=== PATIENT | female | born 1995 | race Caucasian/White ===

== ENCOUNTER 2017-04-09 17:58 | Outpatient (CLI) | payer OTHER ==
[2017-04-09 19:07] VITALS: BP 100/47
== END 2017-04-09 20:43 | disposition home or self-care (01) ==
LOC: WFO 17:58 → FBP 18:00 → WFO 20:43
PROVIDERS: ATTEND Obstetrics & Gynecology
DX: O99.89 Other specified diseases and conditions complicating pregnancy, childbirth and the puerperium (principal); R10.9 Unspecified abdominal pain; Z3A.23 23 weeks gestation of pregnancy
CPT/HCPCS: 82731; 99212

== ENCOUNTER 2017-09-01 01:35 | Emergency (ER) | payer OTHER ==
[2017-09-01] MEDS ORDERED: SUCRALFATE 1 GM/10 ML UDC PO STA (01:52)
[2017-09-01] MEDS ORDERED: MAG HYDROX/AL HYDROX/SIMETH 30 ML UDC PO STA (01:52)
[2017-09-01] MEDS ORDERED: FAMOTIDINE 20 MG TABLET PO STA (01:52)
--- NOTE | 2017-09-01 01:55 | ED Physician Documentation ---
History of Present Illness - Stated complaint Stated Complaint: CHEST PAIN - Chief complaint Chief Complaint: Cardiac - History obtained from History obtained from: Patient, Family - History of Present Illness Timing: How many hours ago (1) Pain level max: 10 Pain level now: 6 Improved by: nothing Worsened by: moving - Additonal information Additional information: Patient is a 22-year-old female who presents to the emergency department with chest pain tonight. This awoke her from sleep. It is worse with eating and drinking. Worse with movement. Has not taken anything for the pain. She is approximately 1 month and is breast-feeding. Denies any redness or swelling to the breast. She does not smoke. Is not on control. No history of blood clots in the patient and her family. Review of Systems Constitutional: denies: Fever, Chills Eyes: denies: Decreased vision Ears: denies: Ear pain Nose: denies: Rhinorrhea / runny nose, Congestion Throat: denies: Sore throat Cardiac: denies: Palpitations, Calf pain Respiratory: denies: Cough GI: denies: Abdominal Pain, Nausea, Vomiting, Diarrhea Skin: denies: Rash Musculoskeletal: denies: Neck pain, Back pain Neurologic: denies: Headache PD PAST MEDICAL HISTORY - Past Medical History Past Medical History: No - Past Surgical History Past Surgical History: No - Present Medications Home Medications: Ambulatory Orders Medication Instructions Recorded Confirmed Famotidine [Pepcid] 20 mg PO BID #60 tablet 09/01/17 Sucralfate [Carafate] 1 gm PO ACHS #60 tablet 09/01/17 - Allergies Allergies/Adverse Reactions: Allergies Allergy/AdvReac Type Severity Reaction Status Date / Time No Known Drug Allergies Allergy Verified 09/01/17 01:44 - Living Situation Living Situation: reports: With family Living Arrangement: reports: At home - Social History Does the pt smoke?: No Does the pt drink ETOH?: No Does the pt have substance abuse?: No PD ED PE NORMAL - Vitals Vital signs reviewed: Yes - General General: Alert and oriented X 3, No acute distress - HEENT HEENT: Moist mucous membranes - Neck Neck: Supple, no meningeal sign - Cardiac Cardiac: RRR, Strong equal pulses, Other (no chest wall tenderness) - Respiratory Respiratory: No respiratory distress, Clear bilaterally - Abdomen Abdomen: Soft, Non tender, Non distended - Derm Derm: Warm and dry - Neuro Neuro: Alert and oriented X 3 - Psych Psych: Normal mood, Normal affect Results - Vitals Vitals: Vital Signs - 24 hr 09/01/17 09/01/17 09/01/17 01:39 01:45 02:49 Temperature 36.5 C Heart Rate 66 56 L Respiratory 18 14 Rate Blood Pressure 116/75 110/63 Blood Pressure 119/64 [Right] O2 Saturation 100 100 Oxygen O2 Source Room air - EKG (time done) 0146 Rate: Rate (enter#) (62) Rhythm: NSR [place]: Normal Intervals: Normal OR (borderline short OR) QRS: Normal Ischemia: Normal ST segments PD MEDICAL DECISION MAKING - ED course Complexity details: reviewed results, re-evaluated patient, considered differential, d/w patient, d/w family ED course: Patient is a 22-year-old female who presents to the emergency department with what appears to be GERD. Symptoms resolved with Tylenol, Carafate and Maalox. No acute findings on EKG. Symptoms are not consistent with acute coronary syndrome. No evidence of pulmonary embolus, pneumothorax. No evidence of aortic dissection or aneurysm. Patient counseled regarding signs and symptoms for which I believe and urgent re-evaluation would be necessary. Patient with good understanding of and agreement to plan and is comfortable going home at this time This document was made in part using voice recognition software. While efforts are made to proofread this document, sound alike and grammatical errors may occur. Departure - Departure Disposition: 01 Home, Self Care Clinical Impression: Atypical chest pain GERD (gastroesophageal reflux disease) Qualifiers: Esophagitis presence: esophagitis presence not specified Qualified Code(s): K21.9 - Gastro-esophageal reflux disease without esophagitis Condition: Good Instructions: ED Chest Pain Atypical Unkn Cause, ED GERD Follow-Up: your,doctor within 1 week [Other] Prescriptions: Famotidine [Pepcid] 20 mg PO BID #60 tablet Sucralfate [Carafate] 1 gm PO ACHS #60 tablet Comments: Return if you worsen. Avoid spicy, fried and fatty foods. Also avoid caffeine.
[2017-09-01] MEDS ORDERED: ACETAMINOPHEN 325 MG TABLET PO STA (02:09)
[2017-09-01 02:50] VITALS: BP 110/63
== END 2017-09-01 02:50 | disposition home or self-care (01) ==
LOC: ED 01:35
DX: R07.89 Other chest pain (principal); K21.9 Gastro-esophageal reflux disease without esophagitis
CPT/HCPCS: 93005; 99283; 99284; A9270

== ENCOUNTER 2017-12-08 23:54 | Emergency (ER) | payer OTHER ==
--- NOTE | 2017-12-09 02:32 | XRAY Report ---
EXAM: LEFT TOE RADIOGRAPHY EXAM DATE: 12/09/2017 02:05 AM. CLINICAL HISTORY: Left little toe injury. COMPARISON: None. TECHNIQUE: 3 views. FINDINGS: Bones: No acute displaced fractures or suspicious bony lesion. Joints: No dislocation. Soft Tissues: No significant soft tissue swelling. IMPRESSION: No acute osseous abnormality demonstrated. [facility] Referring Provider Line: [phone] SITE ID: [id number]
--- NOTE | 2017-12-09 02:32 | XRAY Preliminary Report ---
Exam: XR TOE(S) LT IMPRESSION: No acute osseous abnormality demonstrated. [facility] SITE ID: [id number]
--- NOTE | 2017-12-09 02:36 | ED Physician Documentation ---
PD HPI LOWER EXT INJURY - Stated complaint Stated Complaint: L PINKY TOE INJURY - Chief complaint Chief Complaint: Ext Problem - History obtained from History obtained from: Patient - History of Present Illness PD HPI LOW EXT INJURY LOCATION: Left, Toe (little toe) Type of injury: Blunt / blow Where injury occurred: Home Timing - onset: How many hours ago (2) Worsened by: Other (Weight bearing.) Associated symptoms: No: Weakness, Numbness - Additional information Additional information: The patient is a 22-year-old female who stubbed her left little toe against a duffel bag about 2 hours prior to arrival. She presents now because of continued pain, exacerbated by weightbearing. She denies any other injuries. Review of Systems Constitutional: denies: Fever GI: denies: Nausea, Vomiting Musculoskeletal: reports: Extremity pain (Left little toe.), Pain with weight bearing Neurologic: denies: Focal weakness, Numbness PD PAST MEDICAL HISTORY - Past Medical History Past Medical History: Yes Endocrine/Autoimmune: None Psych: Depression - Past Surgical History Past Surgical History: No - Present Medications Home Medications: Ambulatory Orders Medication Instructions Recorded Confirmed Sertraline [Zoloft] 12/09/17 - Allergies Allergies/Adverse Reactions: Allergies Allergy/AdvReac Type Severity Reaction Status Date / Time No Known Drug Allergies Allergy Verified 12/09/17 00:03 - Social History Does the pt smoke?: No Smoking Status: Never smoker Does the pt drink ETOH?: No Does the pt have substance abuse?: No - Immunizations Immunizations are current?: Yes - POLST Patient has POLST: No PD ED PE NORMAL - Vitals Vital signs reviewed: Yes (normal) - General General: Alert and oriented X 3, Other (overweight) - HEENT HEENT: Atraumatic - Respiratory Respiratory: No respiratory distress - Derm Derm: No rash - Extremities Extremities: Other (There is no swelling or ecchymosis of the left little toe. There is tenderness to palpation of the mid to distal portion of the toe, without tenderness at the fifth metatarsal. There is no tenderness with palpation of the other toes. There is no break in the integument. Distal neurovascular is intact.) Results - Vitals Vitals: Vital Signs - 24 hr 12/09/17 12/09/17 00:01 02:42 Temperature 36.8 C 36.9 C Heart Rate 80 73 Respiratory 17 16 Rate Blood Pressure 131/70 H 99/72 O2 Saturation 96 100 Oxygen O2 Source Room air - Rads (name of study) left toes Radiology: Prelim report reviewed, EMP read contemporaneously, See rad report ( No acute osseous abnormality demonstrated.) PD MEDICAL DECISION MAKING - ED course Complexity details: reviewed results, re-evaluated patient, considered differential, d/w patient, d/w family ED course: The patient's presentation is most consistent with contusion to the left little toe. I discussed with her that x-ray would be of no significant clinical benefit, but she requested that an x-ray be performed nonetheless. This revealed no acute bony abnormality. Treatment in the emergency department included bronson taping of the left little toe to the fourth toe. I discussed with her and her the expected course of injury, symptomatic treatment, as well as potentially worrisome signs or symptoms that should prompt reevaluation. Departure - Departure Disposition: 01 Home, Self Care Clinical Impression: Contusion of toe of left foot Qualifiers: Encounter type: initial encounter Toe: lesser toe Damage to nail status: without damage Qualified Code(s): S90.122A - Contusion of left lesser toe(s) without damage to nail, initial encounter Condition: Stable Instructions: ED Contusion Lower Ext Follow-Up: JAIME Farmer [Provider Group] Comments: Keep your left foot elevated as much the time as possible. You can use Tylenol or ibuprofen if needed for discomfort. Let pain be your guide to activity level. Follow up with your primary physician or return to the emergency department if you develop any sign of infection, or otherwise worsening symptoms. Discharge Date/Time: 12/09/17 02:43
[2017-12-09 02:43] VITALS: BP 99/72
== END 2017-12-09 02:43 | disposition home or self-care (01) ==
LOC: ED 23:54
DX: S90.122A Contusion of left lesser toe(s) without damage to nail, initial encounter (principal); W22.8XXA Striking against or struck by other objects, initial encounter; Y92.009 Unspecified place in unspecified non-institutional (private) residence as the place of occurrence of the external cause
CPT/HCPCS: 73660; 99283

== ENCOUNTER 2018-01-26 19:10 | Emergency (ER) | payer OTHER ==
[2018-01-26 19:19] VITALS: BP 114/65
--- NOTE | 2018-01-26 19:44 | ED Physician Documentation ---
PD HPI HEADACHE - Stated complaint Stated Complaint: HEAD PX/INJURY - Chief complaint Chief Complaint: Heent - History obtained from History obtained from: Patient - History of Present Illness Timing - onset: Yesterday (Got hit while roller derbying, does not remember it specifically, probably fell backward on head, with helmet and mouthguard. Today has increasing throbbing headache and left eye pain. +nausea. No vomiting.) Review of Systems Constitutional: denies: Fever, Chills Nose: denies: Rhinorrhea / runny nose, Congestion Cardiac: denies: Chest pain / pressure, Palpitations Respiratory: denies: Dyspnea, Cough PD PAST MEDICAL HISTORY - Past Medical History Endocrine/Autoimmune: None Psych: Depression - Past Surgical History Past Surgical History: No - Present Medications Home Medications: Ambulatory Orders Medication Instructions Recorded Confirmed Sertraline [Zoloft] 50 mg PO DAILY 12/09/17 - Allergies Allergies/Adverse Reactions: Allergies Allergy/AdvReac Type Severity Reaction Status Date / Time No Known Drug Allergies Allergy Verified 01/26/18 19:19 - Social History Does the pt smoke?: No Smoking Status: Never smoker Does the pt drink ETOH?: No Does the pt have substance abuse?: No - Immunizations Immunizations are current?: Yes - POLST Patient has POLST: No PD ED PE NORMAL - Vitals Vital signs reviewed: Yes - General General: Alert and oriented X 3, No acute distress - HEENT HEENT: PERRL, EOMI - Neck Neck: Supple, no meningeal sign, No bony TTP - Neuro Neuro: Alert and oriented X 3, optimization consultant 2-12 intact Eye Opening: Spontaneous Motor: Obeys Commands Verbal: Oriented GCS Score: 15 - Psych Psych: Normal mood, Normal affect Results - Vitals Vitals: Vital Signs - 24 hr 01/26/18 19:15 Temperature 35.9 C L Heart Rate 56 L Respiratory 16 Rate Blood Pressure 114/65 O2 Saturation 99 Oxygen O2 Source Room air - Rads (name of study) CT Head Radiology: EMP read contemporaneously (normal) Departure - Departure Disposition: 01 Home, Self Care Clinical Impression: Concussion Qualifiers: Encounter type: initial encounter Loss of consciousness presence/duration: without LOC Qualified Code(s): S06.0X0A - Concussion without loss of consciousness, initial encounter Condition: Good Record reviewed to determine appropriate education?: Yes Instructions: ED Concussion Comments: Call your doctor to arrange a follow-up appointment, make the next available appointment. In the interim, return anytime if worse or if new symptoms develop.
--- NOTE | 2018-01-26 20:26 | CT Report ---
EXAM: CT HEAD EXAM DATE: 01/26/2018 08:02 PM. CLINICAL HISTORY: Trauma. COMPARISON: None. TECHNIQUE: Multiaxial CT images were obtained from the foramen magnum to the vertex. Reformats: Coron al. IV contrast: None. In accordance with CT protocol optimization, one or more of the following dose reduction techniques w ere utilized for this exam: automated exposure control, adjustment of mA and/or KV based on patient s ize, or use of iterative reconstructive technique. FINDINGS: Parenchyma: No intraparenchymal hemorrhage. No evidence of mass, midline shift, or CT findings of inf arction. Addison-white differentiation is distinct. Extraaxial Spaces: Normal for age. No subdural or epidural collections identified. Ventricles: Normal in size and position. Sinuses and Orbits: Imaged paranasal sinuses, orbits, and mastoids show no significant abnormality. Bones: No evidence of fracture or calvarial defect. Other: None. IMPRESSION: No acute intracranial CT abnormality. [facility] Referring Provider Line: [phone] SITE ID: [id number]
== END 2018-01-26 21:00 | disposition home or self-care (01) ==
LOC: ED 19:10
DX: S06.0X0A Concussion without loss of consciousness, initial encounter (principal); W22.8XXA Striking against or struck by other objects, initial encounter; W18.30XA Fall on same level, unspecified, initial encounter; Y93.51 Activity, roller skating (inline) and skateboarding
CPT/HCPCS: 70450; 99282; 99283

== ENCOUNTER 2018-02-10 13:45 | Emergency (ER) | payer OTHER ==
[2018-02-10] MEDS ORDERED: ACETAMINOPHEN 325 MG TABLET PO STA (14:50)
[2018-02-10] MEDS ORDERED: ONDANSETRON ODT 4 MG TABLET TL STA (14:50)
--- NOTE | 2018-02-10 14:53 | ED Physician Documentation ---
History of Present Illness - Stated complaint Stated Complaint: DIZZY - Chief complaint Chief Complaint: General - History obtained from History obtained from: Patient, Family - History of Present Illness Timing: How many weeks ago (2) Pain level max: 5 Pain level now: 5 - Additonal information Additional information: Patient is a 22-year-old female who sustained a head injury approximately 2 weeks ago while playing [employer]. Since that time, she has had intermittent headaches. Has had a negative head CT. Has not had any vomiting. Occasionally feels lightheaded and off balance. The symptoms generally resolve with rest and recur with activity. No fevers. No vomiting. No vision changes. No numbness or tingling. Review of Systems Constitutional: denies: Fever, Chills Eyes: denies: Loss of vision, Decreased vision GI: denies: Vomiting : denies: Now EGA PD PAST MEDICAL HISTORY - Past Medical History Past Medical History: Yes Endocrine/Autoimmune: None Psych: Depression - Past Surgical History Past Surgical History: No - Present Medications Home Medications: Ambulatory Orders Medication Instructions Recorded Confirmed Sertraline [Zoloft] 50 mg PO DAILY 12/09/17 Bcp 02/10/18 Ondansetron Odt [Zofran] 4 mg TL Q6H PRN #10 tablet 02/10/18 - Allergies Allergies/Adverse Reactions: Allergies Allergy/AdvReac Type Severity Reaction Status Date / Time No Known Drug Allergies Allergy Verified 02/10/18 13:54 - Living Situation Living Situation: reports: With family Living Arrangement: reports: At home - Social History Does the pt smoke?: No Smoking Status: Never smoker Does the pt drink ETOH?: No Does the pt have substance abuse?: No - Immunizations Immunizations are current?: Yes - POLST Patient has POLST: No PD ED PE NORMAL - Vitals Vital signs reviewed: Yes - General General: Alert and oriented X 3, No acute distress, Well developed/nourished - HEENT HEENT: Atraumatic, PERRL (No nystagmus.), EOMI, Moist mucous membranes, Pharynx benign - Neck Neck: Supple, no meningeal sign, No bony TTP - Cardiac Cardiac: RRR, Strong equal pulses - Respiratory Respiratory: No respiratory distress, Clear bilaterally - Abdomen Abdomen: Soft, Non tender, Non distended - Derm Derm: Warm and dry - Extremities Extremities: No edema - Neuro Neuro: Alert and oriented X 3, doll dresser 2-12 intact, No motor deficit, No sensory deficit, Normal speech, Other (Normal cerebellar test, normal gait) Eye Opening: Spontaneous Motor: Obeys Commands Verbal: Oriented GCS Score: 15 - Psych Psych: Normal mood, Normal affect Results - Vitals Vitals: Oxygen O2 Source Room air PD MEDICAL DECISION MAKING - ED course Complexity details: reviewed old records (Prior ED visit), considered differential, d/w patient, d/w family ED course: Patient is a 22-year-old female with what appears to be a postconcussive syndrome. She has a normal neurological examination here. Had a decrease in the emergency department and resolved. Ambulates with a normal steady gait. Able to walk heel to toe. No indication for repeat head CT at this time. We will continue supportive care and follow-up closely with her doctor. Patient counseled regarding signs and symptoms for which I believe and urgent re- evaluation would be necessary. Patient with good understanding of and agreement to plan and is comfortable going home at this time This document was made in part using voice recognition software. While efforts are made to proofread this document, sound alike and grammatical errors may occur. Departure - Departure Disposition: 01 Home, Self Care Clinical Impression: Post concussion syndrome Condition: Good Instructions: ED Concussion Follow-Up: MEÑO CONTRERAS [Primary Care Provider] - Within 1 week Prescriptions: Ondansetron Odt [Zofran] 4 mg TL Q6H PRN #10 tablet PRN Reason: Nausea / Vomiting Comments: Return if you worsen. Continue to use motrin and tylenol as needed for pain. Forms: Activity restrictions Discharge Date/Time: 02/10/18 15:06
[2018-02-10 15:06] VITALS: BP 103/58
== END 2018-02-10 15:06 | disposition home or self-care (01) ==
LOC: ED 13:45
DX: F07.81 Postconcussional syndrome (principal); Y93.51 Activity, roller skating (inline) and skateboarding
CPT/HCPCS: 99283; A9270; Q0162

== ENCOUNTER 2018-03-13 17:28 | Emergency (ER) | payer OTHER ==
--- NOTE | 2018-03-13 18:13 | ED Physician Documentation ---
PD HPI LOWER EXT INJURY - Stated complaint Stated Complaint: L FT PX - Chief complaint Chief Complaint: Ext Problem - History obtained from History obtained from: Patient - History of Present Illness PD HPI LOW EXT INJURY LOCATION: Left (Without specific injury she has had left foot pain for about a month. It started on the bottom of the foot, she was seen and diagnosed potentially with plantar fasciitis. Since then it is moved to the top of the foot. It is pretty much nonexistent at rest but hurts when she walks or does anything.) Review of Systems Constitutional: reports: Reviewed and negative Cardiac: reports: Reviewed and negative Respiratory: reports: Reviewed and negative PD PAST MEDICAL HISTORY - Past Medical History Past Medical History: No Endocrine/Autoimmune: None Psych: Depression - Past Surgical History Past Surgical History: No - Present Medications Home Medications: Ambulatory Orders Medication Instructions Recorded Confirmed Sertraline [Zoloft] 50 mg PO DAILY 12/09/17 Bc 03/13/18 - Allergies Allergies/Adverse Reactions: Allergies Allergy/AdvReac Type Severity Reaction Status Date / Time No Known Drug Allergies Allergy Verified 03/13/18 17:54 - Social History Does the pt smoke?: Yes Smoking Status: Current every day smoker Does the pt drink ETOH?: No Does the pt have substance abuse?: No - Immunizations Immunizations are current?: Yes - POLST Patient has POLST: No PD ED PE NORMAL - Vitals Vital signs reviewed: Yes - General General: Alert and oriented X 3, No acute distress - Extremities Extremities: Other (Left foot, focal tenderness of the proximal first metatarsal dorsally without limited range of motion of the big toe or any other bony tenderness of the foot ankle or leg.) - Neuro Neuro: Alert and oriented X 3, Normal speech Results - Vitals Vitals: Vital Signs - 24 hr 03/13/18 03/13/18 17:45 19:13 Temperature 36.2 C L 36.9 C Heart Rate 60 60 Respiratory 16 17 Rate Blood Pressure 104/69 108/76 O2 Saturation 100 100 Oxygen O2 Source Room air - Rads (name of study) 3v L foot Radiology: EMP read contemporaneously (normal) PD MEDICAL DECISION MAKING - ED course ED course: She has ongoing atraumatic pain of the top of the left foot at the level of the proximal first metatarsal. There was no injury. There is no evidence of infection. Her x-rays are negative. Conservative care and rest at least initially were advised but [place] - Sepsis Event Vital Signs: Vital Signs - 24 hr 03/13/18 03/13/18 17:45 19:13 Temperature 36.2 C L 36.9 C Heart Rate 60 60 Respiratory 16 17 Rate Blood Pressure 104/69 108/76 O2 Saturation 100 100 Oxygen O2 Source Room air Departure - Departure Disposition: Home, Self Care Clinical Impression: Left foot pain Condition: Good Record reviewed to determine appropriate education?: Yes Instructions: ED Contusion Lower Ext Comments: Ibuprofen as needed for pain, follow-up with your doctor in a week for recheck, take it easy until then with no running. Forms: Activity restrictions Discharge Date/Time: 03/13/18 19:22
--- NOTE | 2018-03-13 18:52 | XRAY Report ---
Procedure Date: 03/13/2018 Accession Number: [id number] / [id number] Procedure: XR - Foot 3 View LT CPT Code: FULL RESULT: EXAM: LEFT FOOT RADIOGRAPHY EXAM DATE: 03/13/2018 06:27 PM. CLINICAL HISTORY: Chronic left foot pain, greatest at the first and second metatarsals. No known trauma. COMPARISON: Left fifth toe 12/09/2017. TECHNIQUE: 3 views. FINDINGS: Bones: Normal. No fractures or bone lesions. Joints: Normal. No subluxations. Soft Tissues: Normal. No soft tissue swelling. IMPRESSION: Normal foot radiography. [facility]
[2018-03-13 19:14] VITALS: BP 108/76
== END 2018-03-13 19:22 | disposition home or self-care (01) ==
LOC: ED 17:28
DX: M79.672 Pain in left foot (principal); F17.200 Nicotine dependence, unspecified, uncomplicated
CPT/HCPCS: 99282; 99283

== ENCOUNTER 2018-08-21 15:33 | Emergency (ER) | payer OTHER ==
[2018-08-21] MEDS ORDERED: IBUPROFEN 800 MG TABLET PO STA (16:00)
--- NOTE | 2018-08-21 16:14 | ED Physician Documentation ---
PD HPI HEENT - Stated complaint Stated Complaint: SORT THROAT/F/N - Chief complaint Chief Complaint: General - History obtained from History obtained from: Patient - History of Present Illness Timing - onset: Last night Timing - details: Gradual onset Location: Throat Associated symptoms: Fever, Congestion, Headache Similar symptoms before: Has not had sx before - Additional information Additional information: The patient is a 23-year-old active [employer] [place] female who presents with sore throat and swollen tonsils. Her symptoms started last night but became worse today. She reports generalized myalgias and arthralgias, mild headache, and general misery. She denies cough, abdominal pain, vomiting or diarrhea, or dysuria. She denies history of similar symptoms in the past. Review of Systems Constitutional: reports: Fever (Possible low grade fever.), Myalgias Eyes: denies: Irritation Ears: denies: Ear pain Nose: reports: Congestion Throat: reports: Sore throat Cardiac: denies: Chest pain / pressure Respiratory: denies: Dyspnea, Cough GI: denies: Abdominal Pain, Nausea, Vomiting : denies: Dysuria Skin: denies: Rash Musculoskeletal: reports: Other (Generalized achiness.) Neurologic: reports: Headache (mild). denies: Focal weakness, Numbness PD PAST MEDICAL HISTORY - Past Medical History Respiratory: None Endocrine/Autoimmune: None Psych: Depression - Past Surgical History Past Surgical History: No - Present Medications Home Medications: Ambulatory Orders Medication Instructions Recorded Confirmed Sertraline [Zoloft] 50 mg PO DAILY 12/09/17 Bc 03/13/18 Penicillin V Potassium 500 mg PO Q6HR #40 tablet 08/21/18 - Allergies Allergies/Adverse Reactions: Allergies Allergy/AdvReac Type Severity Reaction Status Date / Time No Known Drug Allergies Allergy Verified 08/21/18 15:51 - Social History Does the pt smoke?: Yes Smoking Status: Current every day smoker Does the pt drink ETOH?: No Does the pt have substance abuse?: No - Immunizations Immunizations are current?: Yes - POLST Patient has POLST: No PD ED PE NORMAL - Vitals Vital signs reviewed: Yes (normal) - General General: Alert and oriented X 3, Well developed/nourished - HEENT HEENT: Atraumatic, EOMI, Ears normal, Other (Oral pharynx is erythematous, with enlarged tonsils bilaterally, without exudates.) - Neck Neck: Supple, no meningeal sign, No adenopathy - Cardiac Cardiac: RRR, No murmur - Respiratory Respiratory: No respiratory distress, Clear bilaterally - Abdomen Abdomen: Soft, Non tender - Back Back: No CVA TTP - Derm Derm: No rash - Extremities Extremities: No edema, No calf tenderness / cord - Neuro Neuro: Alert and oriented X 3, No motor deficit, Normal speech Results - Vitals Vitals: Vital Signs - 24 hr 08/21/18 08/21/18 15:52 16:51 Temperature 37.4 C Heart Rate 105 H 100 Respiratory 16 16 Rate Blood Pressure 118/63 118/64 O2 Saturation 98 98 Oxygen O2 Source Room air - Labs Labs: Laboratory Tests 08/21/18 16:00 Group A Strep Rapid POSITIVE H PD MEDICAL DECISION MAKING - ED course Complexity details: reviewed results, re-evaluated patient, considered differential, d/w patient ED course: The patient's presentation is significant for acute streptococcal pharyngitis, with a positive rapid strep screen. Her presentation does not suggest peritonsillar abscess, or pneumonia. Treatment in the emergency department included administration of ibuprofen 800 mg orally and penicillin 500 mg orally. She is being discharged with prescriptions for both. I discussed with her and her female communications lead the expected course of illness, antibiotic treatment and outpatient follow-up, as well as potentially worrisome signs or symptoms that should prompt reevaluation in the emergency department. Departure - Departure Disposition: 01 Home, Self Care Clinical Impression: Strep pharyngitis Condition: Stable Instructions: ED Strep Pharyngitis Conf Follow-Up: [facility] [Provider Group] Prescriptions: Penicillin V Potassium 500 mg PO Q6HR #40 tablet Comments: Gargle with cool liquids. Take penicillin 4 times daily as prescribed. You can use ibuprofen, up to 800 mg 3 times daily for its anti-inflammatory effect. Follow-up with your primary physician within 1 week. Call to schedule an appointment. Return to the emergency department if you develop increasing difficulty swallowing, or otherwise worsening symptom. Forms: Activity restrictions Discharge Date/Time: 08/21/18 16:35
[2018-08-21] MEDS ORDERED: PENICILLIN VK 250 MG TABLET PO STA (16:18)
[2018-08-21 16:52] VITALS: BP 118/64
== END 2018-08-21 16:35 | disposition home or self-care (01) ==
LOC: ED 15:33
DX: J02.0 Streptococcal pharyngitis (principal); F17.200 Nicotine dependence, unspecified, uncomplicated
CPT/HCPCS: 87430; 99283; A9270

== ENCOUNTER 2018-08-22 16:29 | Emergency (ER) | payer OTHER ==
[2018-08-22] MEDS ORDERED: SODIUM CHLORIDE 0.9% 1,000 ML IV ONE (16:55)
[2018-08-22] MEDS ORDERED: DEXAMETHASONE 10 MG/ML VIAL IVP STA (16:55)
[2018-08-22] MEDS ORDERED: cefTRIAXone 1 GM in SODIUM CHLORIDE 0.9% MINIBAG 100 ML IV STA (16:55)
[2018-08-22] MEDS ORDERED: KETOROLAC 60 MG/2 ML VIAL IVP STA (16:55)
--- NOTE | 2018-08-22 17:09 | ED Physician Documentation ---
PD HPI HEENT - Stated complaint Stated Complaint: SORE THROAT - Chief complaint Chief Complaint: Heent - History obtained from History obtained from: Patient, Family - History of Present Illness Timing - onset: How many days ago (3) Timing - duration: Days (3) Timing - details: Gradual onset, Still present Location: Throat Improves: Medication Worsens: Swalllowing Associated symptoms: Fever, Congestion, Unable to swallow, Swollen nodes, Headache Similar symptoms before: Diagnosis (strep) Recently seen: Emergency Dept - Additional information Additional information: 23-year-old female who was seen in the emerge department yesterday for strep pharyngitis is not been able to to drink or eat she is not been able to take her penicillin since last night. She continues to have a significant sore throat muscle aches and pains of fever and headache. Review of Systems Constitutional: reports: Fever, Chills, Myalgias, Fatigue Eyes: denies: Decreased vision Ears: denies: Ear pain Nose: reports: Rhinorrhea / runny nose, Congestion Throat: reports: Sore throat Cardiac: denies: Chest pain / pressure, Palpitations Respiratory: reports: Cough. denies: Dyspnea GI: reports: Abdominal Pain. denies: Vomiting : denies: Dysuria, Frequency Skin: denies: Rash Musculoskeletal: denies: Neck pain, Back pain, Extremity pain Neurologic: reports: Generalized weakness. denies: Focal weakness, Numbness PD PAST MEDICAL HISTORY - Past Medical History Respiratory: None Endocrine/Autoimmune: None Psych: Depression - Past Surgical History Past Surgical History: No - Present Medications Home Medications: Ambulatory Orders Medication Instructions Recorded Confirmed Bc 03/13/18 Penicillin V Potassium 500 mg PO Q6HR #40 tablet 08/21/18 Hydrocodone/Acetaminophen 1 - 2 each PO Q6H PRN #14 tablet 08/22/18 [Hydrocodon-Acetaminophen 5-325] - Allergies Allergies/Adverse Reactions: Allergies Allergy/AdvReac Type Severity Reaction Status Date / Time No Known Drug Allergies Allergy Verified 08/22/18 16:38 - Social History Does the pt smoke?: Yes Smoking Status: Current every day smoker Does the pt drink ETOH?: No Does the pt have substance abuse?: No - Immunizations Immunizations are current?: Yes - POLST Patient has POLST: No PD ED PE NORMAL - Vitals Vital signs reviewed: Yes (tachy and hypertensive) - General General: Alert and oriented X 3, Well developed/nourished, Other (does not talk ) - HEENT HEENT: Atraumatic, PERRL, EOMI, Other (there is minimal inflamation to both TM's there is 3+ swelling with crypts and exudate to both tonsils. ) - Neck Neck: Supple, no meningeal sign, No bony TTP, Other (tender submandibular adenopathy and shoddy adenopathy bilaterally ) - Cardiac Cardiac: No murmur, Other (tachy to 100) - Respiratory Respiratory: No respiratory distress, Clear bilaterally - Abdomen Abdomen: Soft, Non tender - Back Back: No CVA TTP, No spinal TTP - Derm Derm: Normal color, Warm and dry, No rash - Extremities Extremities: No deformity, No edema - Neuro Neuro: Alert and oriented X 3, welder tack 2-12 intact, No motor deficit, No sensory deficit, Normal speech Eye Opening: Spontaneous Motor: Obeys Commands Verbal: Oriented GCS Score: 15 - Psych Psych: Normal mood, Normal affect Results - Vitals Vitals: Vital Signs - 24 hr 08/22/18 08/22/18 16:35 17:48 Temperature 37 C 37.6 C H Heart Rate 123 H 106 H Respiratory 20 16 Rate Blood Pressure 137/79 H 125/49 L O2 Saturation 96 95 Oxygen O2 Source Room air PD MEDICAL DECISION MAKING - ED course Complexity details: considered differential, d/w patient, d/w family ED course: 23-year-old female with strep pharyngitis and 3+ cryptic tonsils is not able to swallow and stay hydrated. She is administered intravenous saline dexamethasone Rocephin and Toradol and she requires further rescue with intravenous Dilaudid and Zofran. Departure - Departure Disposition: 01 Home, Self Care Clinical Impression: Strep pharyngitis, Dehydration Condition: Stable Instructions: ED Dehydration, ED Strep Pharyngitis Conf Follow-Up: [facility] [Provider Group] Prescriptions: Hydrocodone/Acetaminophen [Hydrocodon-Acetaminophen 5-325] 1 - 2 each PO Q6H PRN #14 tablet PRN Reason: pain Forms: Activity restrictions
[2018-08-22] MEDS ORDERED: ONDANSETRON 4 MG/2 ML VIAL IVP STA (17:54)
[2018-08-22] MEDS ORDERED: HYDROmorphone 1 MG/ML CARPUJECT IVP STA (17:54)
[2018-08-22 18:22] VITALS: BP 110/57
== END 2018-08-22 18:26 | disposition home or self-care (01) ==
LOC: ED 16:29
DX: J02.0 Streptococcal pharyngitis (principal); E86.0 Dehydration; F17.200 Nicotine dependence, unspecified, uncomplicated
CPT/HCPCS: 96365; 96375; 99283; 99284; J1170

== ENCOUNTER 2018-11-05 01:46 | Emergency (ER) | payer OTHER ==
[2018-11-05] MEDS ORDERED: LIDOCAINE VISCOUS 2% 15 ML UDC MM STA (02:07)
[2018-11-05] MEDS ORDERED: KETOROLAC 60 MG/2 ML VIAL IM STA (02:08)
[2018-11-05] MEDS ORDERED: HYDROcodone/ACETAM 7.5 MG/325 MG 15 ML UDC PO STA ×2 (02:08→02:14)
[2018-11-05] MEDS ORDERED: ONDANSETRON ODT 4 MG TABLET TL STA (02:16)
--- NOTE | 2018-11-05 03:05 | ED Physician Documentation ---
PD HPI HEENT - Stated complaint Stated Complaint: POST OP THROAT PAIN - Chief complaint Chief Complaint: Heent - History obtained from History obtained from: Patient - History of Present Illness Timing - onset: How many hours ago (12) Timing - duration: Hours (12) Timing - details: Gradual onset Pain level max: 7 Pain level now: 7 Severity Comments: moderate Location: Throat Improves: Medication Worsens: Swalllowing Associated symptoms: No: Fever, Congestion, Rhinorrhea, Trismus Review of Systems Ten Systems: 10 systems reviewed and negative Constitutional: reports: Reviewed and negative Eyes: reports: Reviewed and negative Ears: reports: Reviewed and negative Nose: reports: Reviewed and negative Throat: reports: Reviewed and negative Cardiac: reports: Reviewed and negative Respiratory: reports: Reviewed and negative GI: reports: Reviewed and negative : reports: Reviewed and negative Skin: reports: Reviewed and negative Musculoskeletal: reports: Reviewed and negative Neurologic: reports: Reviewed and negative Psychiatric: reports: Reviewed and negative Endocrine: reports: Reviewed and negative Immunocompromised: reports: Reviewed and negative PD PAST MEDICAL HISTORY - Past Medical History Past Medical History: Yes Respiratory: None Endocrine/Autoimmune: None Psych: Depression - Past Surgical History Past Surgical History: Yes HEENT: Tonsil/Adenoidectomy - Present Medications Home Medications: Ambulatory Orders Medication Instructions Recorded Confirmed Bc 03/13/18 oxyCODONE [Roxicodone] 1 tab PO Q6HR PRN 11/05/18 11/05/18 - Allergies Allergies/Adverse Reactions: Allergies Allergy/AdvReac Type Severity Reaction Status Date / Time No Known Drug Allergies Allergy Verified 11/05/18 01:53 - Living Situation Living Situation: reports: With spouse/s.o. Living Arrangement: reports: At home - Social History Does the pt smoke?: Yes Smoking Status: Current every day smoker Does the pt drink ETOH?: No Does the pt have substance abuse?: No - Family History Family history: reports: Other (Reviewed and not pertinent) - Immunizations Immunizations are current?: Yes - POLST Patient has POLST: No PD ED PE NORMAL - Vitals Vital signs reviewed: Yes - General General: Alert and oriented X 3, No acute distress - HEENT HEENT: PERRL - Neck Neck: Supple, no meningeal sign - Cardiac Cardiac: RRR, No murmur - Respiratory Respiratory: Clear bilaterally - Abdomen Abdomen: Normal bowel sounds, Soft, Non tender, Non distended - Derm Derm: Warm and dry - Extremities Extremities: No deformity - Neuro Neuro: Alert and oriented X 3 - Psych Psych: Normal mood, Normal affect Results - Vitals Vitals: Vital Signs - 24 hr 11/05/18 11/05/18 11/05/18 01:50 03:00 03:10 Temperature 36.0 C L 36.3 C L Heart Rate 59 L 65 65 Respiratory 18 18 16 Rate Blood Pressure 105/57 L 114/66 106/57 L O2 Saturation 98 99 99 Oxygen O2 Source Room air PD MEDICAL DECISION MAKING - ED course Complexity details: reviewed results, re-evaluated patient, considered differential, d/w patient, d/w family ED course: 23-year-old female 1 day status post tonsillectomy presents with pain with swallowing. Pain improved significantly with viscous lidocaine, Toradol, Lortab. Patient discharged with ENT follow-up.She is managing secretions well and able to take medications by mouth. Departure - Departure Disposition: 01 Home, Self Care Clinical Impression: Post-op pain Instructions: Tonsillectomy Follow-Up: Your, ENT [Other] Comments: For the next 3 days you may take up to 10 mg oxycodone every 4 hours if needed for severe pain. You may take up to 1000 mg Tylenol and 8 mg ibuprofen 3 times daily in addition for pain.If your pain worsens return to the emergency department or call your ENT. Discharge Date/Time: 11/05/18 03:10
[2018-11-05 03:13] VITALS: BP 106/57
== END 2018-11-05 03:10 | disposition home or self-care (01) ==
LOC: ED 01:46
DX: G89.18 Other acute postprocedural pain (principal)
CPT/HCPCS: 96372; 99283; A9270; Q0162

== ENCOUNTER 2020-01-06 19:14 | Emergency (ER) | payer MEDICAID, OTHER ==
--- NOTE | 2020-01-06 19:27 | ED Physician Documentation ---
History of Present Illness - Stated complaint Stated Complaint: ABD PX - Chief complaint Chief Complaint: Abd Pain - History obtained from History obtained from: Patient (the patient is a 24 y/o f who reports chronic abd pain and discomfort for the last year and is waiting to see GI. c/o of epigastric pain currently. not taking any PPIs or H2 blockers. she reports that she has been smoking marijuana daily as well and is having chronic GI issues with vomiting. she reports in the last year she has had abd US as well as CT of the abdomen and pelvis that has showed some small gallstones. she denies any dark urine, mateo colored stools or any other signs of jaundice. reports abd cramping without diarrhea or constipation, reports an implanon device and denies . Denies pelvic pain, vaginal bleeding or dysuria, LMP 2 weeks ago.) Review of Systems Constitutional: reports: Reviewed and negative Eyes: reports: Reviewed and negative Ears: reports: Reviewed and negative Nose: reports: Reviewed and negative Throat: reports: Reviewed and negative Cardiac: reports: Reviewed and negative Respiratory: reports: Reviewed and negative GI: reports: Abdominal Pain, Nausea, Vomiting : reports: Reviewed and negative Skin: reports: Reviewed and negative Musculoskeletal: reports: Reviewed and negative Neurologic: reports: Reviewed and negative Psychiatric: reports: Reviewed and negative Endocrine: reports: Reviewed and negative Immunocompromised: reports: Reviewed and negative PD PAST MEDICAL HISTORY - Past Medical History Respiratory: None Endocrine/Autoimmune: None Psych: Depression - Past Surgical History Past Surgical History: Yes HEENT: Tonsil/Adenoidectomy - Present Medications Home Medications: Ambulatory Orders Medication Instructions Recorded Confirmed Bc 03/13/18 Dicyclomine [Bentyl] 20 mg PO QID PRN #10 capsule 01/06/20 oxyCODONE [Roxicodone] 5 mg PO Q8HR PRN 01/06/20 01/06/20 - Allergies Allergies/Adverse Reactions: Allergies Allergy/AdvReac Type Severity Reaction Status Date / Time No Known Drug Allergies Allergy Verified 01/06/20 19:26 - Social History Does the pt smoke?: Yes Smoking Status: Current every day smoker Does the pt drink ETOH?: No Does the pt have substance abuse?: No - Immunizations Immunizations are current?: Yes - POLST Patient has POLST: No PD ED PE NORMAL - Vitals Vital signs reviewed: Yes - General General: Alert and oriented X 3, No acute distress, Well developed/nourished - HEENT HEENT: Atraumatic, PERRL, Moist mucous membranes, Pharynx benign - Neck Neck: Supple, no meningeal sign, No adenopathy - Cardiac Cardiac: RRR, No murmur, Strong equal pulses - Respiratory Respiratory: No respiratory distress, Clear bilaterally - Abdomen Abdomen: Normal bowel sounds, Soft, Non tender, Non distended, No organomegaly, Other (mild ttp in the epigastric region, negative murphys sign, negative rovsings, negative psoas. no midline abd pulastile mass.) - Derm Derm: Warm and dry - Extremities Extremities: No deformity - Neuro Neuro: Alert and oriented X 3 - Psych Psych: Normal mood, Normal affect Results - Vitals Vitals: Vital Signs - 24 hr 01/06/20 01/06/20 01/06/20 19:20 20:34 21:21 Temperature 36.7 C Heart Rate 84 69 94 Respiratory 16 16 16 Rate Blood Pressure 114/68 104/59 L 120/56 L O2 Saturation 97 97 97 Oxygen O2 Source Room air - Labs Labs: Laboratory Tests 01/06/20 01/06/20 20:30 20:30 WBC 7.4 RBC 4.49 Hgb 14.0 Hct 39.5 MCV 88.0 MCH 31.2 H MCHC 35.4 RDW 12.4 Plt Count 243 MPV 10.9 H Neut # (Auto) 4.7 Lymph # (Auto) 2.2 [place] # (Auto) 0.4 Eos # (Auto) 0.1 Baso # (Auto) 0.0 Absolute Nucleated RBC 0.00 Nucleated RBC % 0.0 Sodium 136 Potassium 3.7 Chloride 105 Carbon Dioxide 20 L Anion Gap 11.0 BUN 12 Creatinine 0.7 Estimated GFR (MDRD) 105 Glucose 77 Calcium 9.2 Total Bilirubin 1.2 H AST 34 ALT 20 Alkaline Phosphatase 66 Total Protein 7.5 Albumin 4.3 Globulin 3.2 Albumin/Globulin Ratio 1.3 Lipase 32 PD MEDICAL DECISION MAKING - ED course Complexity details: re-evaluated patient (20:15 patient tearful, abd is soft, there is diffuse ttp, patient is complaining that she has not beend able to eat or drink for 2 days. her exam is unremarkable, her vitals show no signs of dehydration, will get screening labs and provide 1 liter of NS IVF. Patient updated and agreeable to plan.), considered differential (ddx includes cannabinoid hyperemesis syndrome, biliary colic, PUD, pancreatitis. Exam is unremarkable, vital signs show no signs of acute emergent pathology, given the recent marijuana use will try IM haldol and reval. patient reports a significant outpatient workup to include CT scans, ABD US and labs work up and is pending evaluation by GI. ), d/w patient (21:23 patient reexamined, pain free, tolerated po challenge, labs are unremarkable. will f/u w gi and pcp this week.) Departure - Departure Disposition: 01 Home, Self Care Clinical Impression: Epigastric pain Condition: Stable Instructions: ED Abdominal Pain Unkn Cause Follow-Up: your, doctor [Other] - Tomorrow Prescriptions: Dicyclomine [Bentyl] 20 mg PO QID PRN #10 capsule PRN Reason: Abdominal Pain
[2020-01-06] MEDS ORDERED: HALOPERIDOL 5 MG/ML VIAL IM STA (19:40)
[2020-01-06] MEDS ORDERED: SODIUM CHLORIDE 0.9% 1,000 ML IV ONE (20:15)
[2020-01-06 20:40] LABS: BASOPHILS % (AUTO) 0.5 %; EOSINOPHILS # (AUTO) 0.1 10^3/uL (0.0-0.7); EOSINOPHILS % (AUTO) 0.8 %; LYMPHOCYTES # (AUTO) 2.2 10^3/uL (1.5-3.5); LYMPHOCYTES % (AUTO) 29.2 %; MEAN CORPUSCULAR HEMOGLOBIN 31.2 pg (27.0-31.0); MEAN CORPUSCULAR HGB CONC 35.4 g/dL (32.0-36.0); MEAN PLATELET VOLUME 10.9 fL (7.9-10.8); MONOCYTES # (AUTO) 0.4 10^3/uL (0.0-1.0); MONOCYTES % (AUTO) 5.8 %; NEUTROPHILS # (AUTO) 4.7 10^3/uL (1.5-6.6); NEUTROPHILS % (AUTO) 63.4 %; PLT - PLATELET COUNT 243 10^3/uL (130-450); RED BLOOD COUNT 4.49 10^6/uL (4.20-5.40); RED CELL DISTRIBUTION WIDTH 12.4 % (12.0-15.0); WHITE BLOOD COUNT 7.4 x10^3/uL (4.8-10.8)
[2020-01-06 20:53] LABS: ALBUMIN 4.3 g/dL (3.2-5.5); ALBUMIN/GLOBULIN RATIO 1.3 (1.0-2.2); BILIRUBIN,TOTAL 1.2 mg/dL (0.2-1.0); CALCIUM 9.2 mg/dL (8.5-10.3); CREATININE 0.7 mg/dL (0.4-1.0); TOTAL PROTEIN 7.5 g/dL (6.7-8.2)
[2020-01-06] MEDS ORDERED: DICYCLOMINE 10 MG CAPSULE PO STA (21:07)
[2020-01-06] MEDS ORDERED: FAMOTIDINE 20 MG/2 ML SYRINGE IVP STA (21:07)
[2020-01-06 21:22] VITALS: BP 120/56
[2020-01-06 21:22] LABS: GLUCOSE, URINE (UA) NEGATIVE (NEGATIVE); KETONES,URINE (UA) >=80 mg/dL (NEGATIVE); LEUKOCYTE ESTERASE, URINE TRACE (NEGATIVE); NITRITE,URINE NEGATIVE (NEGATIVE); OCCULT BLOOD,URINE NEGATIVE (NEGATIVE); PROTEIN,URINE NEGATIVE (NEGATIVE); UROBILINOGEN,URINE 0.2 (NORMAL) E.U./dL (NORMAL)
[2020-01-06 21:25] LABS: BILIRUBIN,URINE NEGATIVE (NEGATIVE); CLARITY,URINE CLEAR (CLEAR); HCG UR QUAL NEGATIVE; ICTOTEST,URINE NEGATIVE
[2020-01-06 21:29] LABS: BACTERIA,URINE Few /HPF (None Seen); RBC,URINE 0-5 /HPF (0-5); SQUAMOUS EPITHELIAL CELL,UR MOD Squamous (<= Few)
== END 2020-01-06 21:29 | disposition home or self-care (01) ==
LOC: ED 19:14
DX: R10.13 Epigastric pain (principal); F17.200 Nicotine dependence, unspecified, uncomplicated
CPT/HCPCS: 36415; 80053; 81001; 81025; 83690; 85025; 96361; 96372; 96374; 99283; A9270; 81003; 87086